=== PATIENT | female | born 1930 | race Caucasian/White ===

== ENCOUNTER 2018-01-16 15:43 | Outpatient (CLI) | payer MEDICARE, OTHER | END 2018-01-16 15:44 | disposition home or self-care (01) | LOC: BICMAMMO 15:43 | PROVIDERS: ATTEND Family Medicine | DX: Z12.31 Encounter for screening mammogram for malignant neoplasm of breast (principal) | CPT/HCPCS: 77063; 77067 ==

== ENCOUNTER 2019-01-17 09:02 | Outpatient (CLI) | payer MEDICARE, OTHER ==
--- NOTE | 2019-01-17 09:50 | MMO ---
Bilateral MAMMO Bilat Screen [facility]. CLINICAL HISTORY: Patient is 88 years old and is seen for screening. The patient has no family history of breast cancer. The patient has a history of colon cancer at age 81. The patient has a history of right Ultrasound Guided Core Biopsy in December, - benign. VIEWS: The views performed were: bilateral craniocaudal with tomosynthesis; bilateral mediolateral oblique with tomosynthesis; and right mediolateral oblique. FILMS COMPARED: The present examination has been compared to prior imaging studies performed at [facility] on 11/03/1997, 11/02/1998, 11/02/1999, 11/02/2000, 11/06/2001, 11/07/2002, 11/11/2003, 11/16/2004, 11/23/2005, 11/29/2006, 12/03/2007, 12/09/2008, 12/10/2009, 12/13/2009, 12/12/2010, 12/14/2011, 12/13/2012, 12/23/2014, 12/27/2015, 12/28/2016 and 01/16/2018. MAMMOGRAM FINDINGS: The breasts are heterogeneously dense, which could obscure a lesion on mammography. Finding 1: There is an asymmetry seen in the MLO view only seen in the right breast. Finding 2: There are stable benign appearing calcifications seen in both breasts. There are also vascular calcifications. IMPRESSION: FINDING 1: ASYMMETRY IN THE RIGHT BREAST REQUIRES ADDITIONAL EVALUATION. RECOMMEND DIAGNOSTIC MAMMOGRAM. ULTRASOUND MAY ALSO PROVE USEFUL AT RECALL. THE RESULTS OF THIS EXAM WERE SENT TO THE PATIENT. ACR BI-RADS Category 0 - Incomplete: Need additional imaging evaluation. [facility] will notify the patient of the need for additional imaging services. MAMMOGRAPHY NOTE: 1. A negative mammogram report should not delay a biopsy if a dominant of clinically suspicious mass is present. 2. Approximately 10% to 15% of breast cancers are not detected by mammography. 3. Adenosis and dense breasts may obscure an underlying neoplasm.
== END 2019-01-17 09:03 | disposition home or self-care (01) ==
LOC: BICMAMMO 09:02
PROVIDERS: ATTEND Family Medicine
DX: Z12.31 Encounter for screening mammogram for malignant neoplasm of breast (principal); N64.89 Other specified disorders of breast; Z85.038 Personal history of other malignant neoplasm of large intestine
CPT/HCPCS: 77063; 77067

== ENCOUNTER 2019-01-21 13:58 | Outpatient (CLI) | payer MEDICARE, OTHER ==
--- NOTE | 2019-01-21 14:54 | MMO ---
Right Breast MAMMO Unilat Diag [facility]BETTY. CLINICAL HISTORY: Patient is 88 years old and is seen for additional evaluation requested from prior study. The patient has no family history of breast cancer. The patient has a history of colon cancer at age 81. The patient has a history of right Ultrasound Guided Core Biopsy in December, - benign. VIEWS: The views performed were: right craniocaudal with tomosynthesis and right mediolateral with tomosynthesis. FILMS COMPARED: The present examination has been compared to prior imaging studies performed at [facility] on 11/03/1997, 11/02/1998, 11/02/1999, 11/02/2000, 11/06/2001, 11/07/2002, 11/11/2003, 11/16/2004, 11/23/2005, 11/29/2006, 12/03/2007, 12/09/2008, 12/10/2009, 12/13/2009, 12/12/2010, 12/14/2011, 12/13/2012, 12/23/2014, 12/27/2015, 12/28/2016, 01/16/2018 and 01/17/2019. MAMMOGRAM FINDINGS: The breast is heterogeneously dense, which could obscure a lesion on mammography. The questionable asymmetric density did not persist with the additional views. There are no suspicious masses, suspicious calcifications, or new areas of architectural distortion. IMPRESSION: THERE IS NO MAMMOGRAPHIC EVIDENCE OF MALIGNANCY. A ROUTINE FOLLOW-UP MAMMOGRAM IN 1 YEAR IS RECOMMENDED. THE RESULTS OF THIS EXAM WERE SENT TO THE PATIENT. ACR BI-RADS Category 2 - Benign finding MAMMOGRAPHY NOTE: 1. A negative mammogram report should not delay a biopsy if a dominant of clinically suspicious mass is present. 2. Approximately 10% to 15% of breast cancers are not detected by mammography. 3. Adenosis and dense breasts may obscure an underlying neoplasm.
== END 2019-01-21 13:59 | disposition home or self-care (01) ==
LOC: BICMAMMO 13:58
PROVIDERS: ATTEND Family Medicine
DX: R92.2 Inconclusive mammogram (principal); Z85.038 Personal history of other malignant neoplasm of large intestine
CPT/HCPCS: 77065; G0279

== ENCOUNTER 2019-02-21 06:55 | Day surgery (SDC) | payer MEDICARE, OTHER ==
--- NOTE | 2019-02-20 13:51 | HP ---
HISTORY OF PRESENT ILLNESS: This is an 88-year-old female with history of colon polyp and also has had colon cancer. The patient had right colectomy for colon carcinoma in the past. The patient underwent followup colonoscopy because of previous colon cancer surgery. ALLERGIES: MULTIPLE INCLUDING CIPROFLOXACIN, DOXYCYCLINE, HYDRALAZINE, LAMICTAL, LIPITOR, NIACIN, PREDNISONE , VICODIN, AND PREDNISONE. MEDICAL ILLNESSES: 1. Hypertension. 2. Hyperlipidemia. 3. Osteoarthritis. 4. Colon polyp. 5. Colon cancer status post right colectomy. 6. Allergic rhinitis. 7. Hypothyroidism. PHYSICAL EXAMINATION: GENERAL: A very fragile looking elderly female, appears comfortable. VITAL SIGNS: Pulse is 70 and blood pressure is 120/76. HEENT: Conjunctivae clear. CARDIOVASCULAR SYSTEM: First and second heart sounds normal. LUNGS: Clear to auscultate. ABDOMEN: Soft. No organomegaly. No tenderness. No masses. ADMITTING DIAGNOSIS: An 88-year-old female with status post right colectomy for colon cancer. PLAN: Followup colonoscopy. Job ID: [id number] MTDD
--- NOTE | 2019-02-21 15:21 | OP ---
DATE OF PROCEDURE: 02/21/2019 PROCEDURE PERFORMED: Colonoscopy with biopsy. PREOPERATIVE DIAGNOSIS: An 88-year-old female with colon cancer, status post right colectomy. She is undergoing followup colonoscopy. POSTOPERATIVE DIAGNOSES: 1. Redundant, tortuous colon. 2. Mild sigmoid diverticular disease. 3. Sessile polyp, descending colon. PROCEDURE PERFORMED: Colonoscopy with biopsy. DESCRIPTION OF PROCEDURE: The patient was placed on her left lateral position and was given sedation by Anesthesia Department. A rectal exam was done before the scope was advanced into the rectum. No lesions felt on rectal exam. A Pentax video colonoscope was introduced into the rectum and advanced all the way to anastomotic area. The mucosa appeared normal throughout the colon. The patient had a previous right colectomy and the anastomotic area appeared healthy. Withdrawal of scope from the anastomotic area down to transverse colon, splenic flexure, no pathology. A sessile descending colon polyp was removed by forceps. The sigmoid colon showed mild diverticular disease. Retroflexion of the scope in the rectum showed no pathology. DISCHARGE PLANNING: This is an 88-year-old female came for colonoscopy because of previous colon cancer surgery. She underwent colonoscopy and biopsy. DISCHARGE RECOMMENDATION: 1. The patient was advised to call me should she develop abdominal pain, hematochezia, or fever. 2. In the absence of any of the above symptoms, the patient will come back to me in 2 weeks. Job ID: [id number]
[2019-02-21] MEDS ORDERED: PROPOFOL 200 MG/20 ML VIAL ONE (17:40)
[2019-02-21] MEDS ORDERED: Lidocaine 1% PF 5 ML VIAL ONE (17:40)
== END 2019-02-21 09:54 | disposition home or self-care (01) ==
LOC: SDC 06:55
PROVIDERS: ATTEND Internal Medicine Gastroenterology
PROC: 0DBM8ZX Excision of Descending Colon, Via Natural or Artificial Opening Endoscopic, Diagnostic (ICD-10-PCS; principal; 2019-02-21)
DX: Z12.11 Encounter for screening for malignant neoplasm of colon (principal); D12.4 Benign neoplasm of descending colon; K57.30 Diverticulosis of large intestine without perforation or abscess without bleeding; K63.89 Other specified diseases of intestine; I10 Essential (primary) hypertension; E78.5 Hyperlipidemia, unspecified; M19.90 Unspecified osteoarthritis, unspecified site; E03.9 Hypothyroidism, unspecified; J30.9 Allergic rhinitis, unspecified; Z86.010 Personal history of colon polyps; Z85.038 Personal history of other malignant neoplasm of large intestine; Z79.82 Long term (current) use of aspirin; Z79.899 Other long term (current) drug therapy; Z88.1 Allergy status to other antibiotic agents; Z88.8 Allergy status to other drugs, medicaments and biological substances; Z90.49 Acquired absence of other specified parts of digestive tract
CPT/HCPCS: 88305; J2001; J2704

== ENCOUNTER 2020-05-19 10:46 | Outpatient (CLI) | payer MEDICARE, OTHER ==
--- NOTE | 2020-05-19 11:54 | MMO ---
Bilateral MAMMO Bilat Screen [facility]. CLINICAL HISTORY: Patient is 89 years old and is seen for screening. The patient has no family history of breast cancer. The patient has a history of colon cancer at age 81. The patient has a history of right Ultrasound Guided Core Biopsy in December, - benign. VIEWS: The views performed were: bilateral craniocaudal with tomosynthesis and bilateral mediolateral oblique with tomosynthesis. FILMS COMPARED: The present examination has been compared to prior imaging studies performed at [facility] on 12/28/2016, 01/16/2018, 01/17/2019 and 01/21/2019. This study has been interpreted with the assistance of computer-aided detection. MAMMOGRAM FINDINGS: The breasts are heterogeneously dense, which could obscure a lesion on mammography. There are stable benign appearing calcifications seen in both breasts. There are also vascular calcifications. There are no suspicious masses, suspicious calcifications, or new areas of architectural distortion. IMPRESSION: THERE IS NO MAMMOGRAPHIC EVIDENCE OF MALIGNANCY. A ROUTINE FOLLOW-UP MAMMOGRAM IN 1 YEAR IS RECOMMENDED. THE RESULTS OF THIS EXAM WERE SENT TO THE PATIENT. ACR BI-RADS Category 2 - Benign finding MAMMOGRAPHY NOTE: 1. A negative mammogram report should not delay a biopsy if a dominant of clinically suspicious mass is present. 2. Approximately 10% to 15% of breast cancers are not detected by mammography. 3. Adenosis and dense breasts may obscure an underlying neoplasm. Reported by: NICHOLE ONEAL MD Electonically Signed: [id number]
== END 2020-05-19 10:47 | disposition home or self-care (01) ==
LOC: BICMAMMO 10:46
PROVIDERS: ATTEND Family Medicine
DX: Z12.31 Encounter for screening mammogram for malignant neoplasm of breast (principal); Z85.038 Personal history of other malignant neoplasm of large intestine; Z91.89 Other specified personal risk factors, not elsewhere classified
CPT/HCPCS: 77063; 77067

== ENCOUNTER 2020-09-22 14:13 | Outpatient (CLI) | payer MEDICARE, OTHER ==
--- NOTE | 2020-09-22 18:52 | RAD ---
LEFT HIP THREE VIEWS: 09/22/20 HISTORY: Patient kicked a chair yesterday, bruising around fifth metatarsal. Arthritic changes of the foot. These are particularly pronounced at Lisfranc joint. There is a more t ransversely oriented fracture involving the more distal aspect of the proximal phalanx of the little toe. IMPRESSION: Essentially nondisplaced proximal phalanx little toe fracture. POS: JUANY
== END 2020-09-22 14:14 | disposition home or self-care (01) ==
LOC: BICRAD 14:13
PROVIDERS: ATTEND Podiatrist
DX: S99.922A Unspecified injury of left foot, initial encounter (principal); S92.515A Nondisplaced fracture of proximal phalanx of left lesser toe(s), initial encounter for closed fracture

== ENCOUNTER 2022-06-14 09:37 | Outpatient (CLI) | payer MEDICARE, OTHER | END 2022-06-14 09:38 | disposition home or self-care (01) | LOC: BICMAMMO 09:37 | PROVIDERS: ATTEND Family Medicine | DX: Z12.31 Encounter for screening mammogram for malignant neoplasm of breast (principal); Z91.89 Other specified personal risk factors, not elsewhere classified; Z85.038 Personal history of other malignant neoplasm of large intestine | CPT/HCPCS: 77063; 77067 ==